=== PATIENT | male | born 1995 | race Caucasian/White ===

== ENCOUNTER 2021-12-29 17:25 | Outpatient (CLI) | payer SELFPAY | END 2021-12-29 23:59 | disposition home or self-care (01) | PROVIDERS: PCP Family Medicine; Visit Provider Otolaryngology | DX: Z03.818 Encounter for observation for suspected exposure to other biological agents ruled out (principal); Z11.59 Encounter for screening for other viral diseases | CPT/HCPCS: 87635; U0003; U0005 ==

== ENCOUNTER 2023-05-07 09:28 | Emergency (ER) | payer SELFPAY ==
[2023-05-07 09:29] VITALS: BP 123/87; PULSE 66; RESP 14; TEMP 36.4; O2SAT 99; BMI 24.4
--- NOTE | 2023-05-07 09:34 | NURSING ---
NO OLD EKGS
[2023-05-07 09:36] VITALS: BP 139/91; PULSE 68; RESP 14; O2SAT 98
--- NOTE | 2023-05-07 09:37 | EDS_ITS ---
HPI History of Present Illness Chief Complaint: Chest Pain [facility] Medical History no medical history Home Medications NK 05/07/23 [History Last Taken Unknown] Allergy/AdvReac Type Severity Reaction Status Date / Time No Known Allergies Allergy Verified 05/07/23 09:29 Surgical History no surgical history Social History Smoking Status: Former smoker EXAM Physical Exam Const Vital Signs: 05/07/23 09:29 05/07/23 09:36 05/07/23 09:37 Temperature 97.6 F L Temperature Source Temporal Pulse Rate 66 68 Respiratory Rate 14 14 Respiratory Effort Normal Blood Pressure 123/87 H 139/91 H Blood Pressure Mean 99 107 Pulse Ox 99 98 Oxygen Delivery Method Room Air Room Air 05/07/23 09:49 05/07/23 11:15 Temperature Temperature Source Pulse Rate 55 L Respiratory Rate 17 Respiratory Effort Blood Pressure 130/88 H Blood Pressure Mean 102 Pulse Ox 97 Oxygen Delivery Method Room Air Heart Score History: Moderately Suspicious ECG: Normal Age: </= 45 years Risk Factors: No Risk Factors Troponin: </= Normal Limit Score: 1 MDM MDM MDM Narrative Medical decision making narrative: HISTORY OF PRESENT ILLNESS: 27-year-old male presents with chest pain. He states acute onset of chest pain approximately 4 hours prior to arrival. States he felt nauseous and started feeling sweaty and almost passed out. Denies history of similar symptoms. Denies any recent alcohol use. Denies any nausea or vomiting. Denies any abdominal pain. Denies any fever cough. Patient denies sudden onset of pain, no tearing sensation, no migratory symptoms, no new numbness, weakness or loss of sensation. Patient denies family history or personal history of Marfan syndrome or Lexa-Danlos. The patient denies recent surgery in the last 4 weeks or immobilization in the last 3 days, denies previous diagnosis of DVT or PE, hemoptysis, unilateral leg swelling or malignancy with treatment the last 6 months. No estrogen use noted. REVIEW OF SYSTEMS: All other systems reviewed and are negative except as noted in the history of present illness. At least 10 review of systems reviewed and are negative except as noted in history of present illness. PHYSICAL EXAM: Nursing triage notes reviewed, Vital signs reviewed Constitutional: please see mdm HENT: MMM Eyes: Pupils equal round and reactive to light, Extraocular muscles intact Neck: No stridor, no JVD, full neck ROM Lungs: Clear to auscultation, No wheezing or rales. No increased work of breathing, no conversational dyspnea, no accessory muscle use, no nasal flaring. No respiratory distress noted Heart: Regular rate and rhythm, No murmurs, No rubs and No gallops, 2+ distal pulses (radial, femoral, posterior tibial) in all extremities Abdomen: Soft, there is no tenderness, rigidity, rebound or guarding, no obvious peritoneal signs, no palpable pulsatile abdominal masses, no auscultated abdominal bruit : No CVAT Extremities: No edema Neuro: No focal neurological deficits, cranial nerves II through XII intact, 5/5 strength in all extremities. Intact sensation to light touch in all extremities, 2+ reflexes bilateral patella tendons. Normal gait. No ataxia. Skin: No rash or lesions noted MEDICAL DECISION MAKING: Chief Complaint: Chest pain External records reviewed: No recent ED visits or hospitalizations, no recent cardiac observation, stress test or echocardiograms noted in the chart Factors affecting care: No prior medical history Social determinants of health: Patient denies cocaine or methamphetamine abuse History obtained from others: The patient's mother Consults: none ALL IMAGES (IF OBTAINED) HAVE BEEN PERSONALLY REVIEWED AND INTERPRETED BY MYSELF. EKG with normal sinus rhythm, normal axis, normal intervals, no obvious STEMI, no signs of HOCM, WPW or ARVD or Brugada syndrome CBC without leukocytosis, severe anemia, no thrombocytopenia. BMP without evidence of significant electrolyte abnormalities, no anion gap, no acute kidney injury. Troponin is negative, no evidence of myocardial ischemia BNP within normal limits making volume overload, increased ventricular stretch, increased transmural pressure less likely MDM Narrative: Patient was hemodynamically stable, afebrile, nontoxic-appearing. Exam without focal cardiopulmonary abnormalities, no murmurs, no gallops no rubs. No stigmata of VTE or dissection. I considered the following differential diagnosis: ACS, arrhythmia, anemia, electrolyte abnormality, pneumonia, pneumothorax, GI etiology, PE I obtained a broad lab and imaging work-up to further elucidate the etiology of the patient's complaints pacifically without signs of heart failure, myocardial ischemia, anemia or electrolyte abnormalities, pneumonia or pneumothorax. I considered obtaining a CT of the chest to rule out PE or dissection however thought these etiologies less likely given reassuring clinical history and reassuring exam. PE less likely given low risk Wells score. Aortic dissection is thought to be less likely given no sudden ripping or tearing pain, migratory pain, palpable pulse inequalities, no focal neurologic deficits concurrent with chest pain. Chance of dissection less than 10/1999. Pericarditis less likely given no pathognomonic EKG changes (no diffuse ST elevations, CO depressions). GI etiology (i.e. Boerhaave syndrome) less likely given no chest or neck crepitus, no vomiting or forced retching. I completed a HEART Score to screen for Major Adverse Cardiac Event (MACE) in this patient. The evidence indicates that the patient is very low risk for MACE and this is consistent with my clinical intuition. The risk of further workup or hospitalization for MACE is likely higher than the risk of the patient having a MACE. It is, therefore, in the patient?s best interest not to do additional emergent testing or to be hospitalized for MACE at this time. Shared Decision-Making No hospitalization indicated I have discussed with the patient my clinical impression and the result of the HEART Score to screen for MACE, as well as the risks of further testing and hospitalization. The HEART Score shows that the risk for MACE is less than 1%. Although the risk of MACE has not been completely eliminated, the risks of further testing or hospitalization for MACE likely exceed any potential benefit, and the patient agrees with not pursuing further emergent evaluation or hospitalization for MACE at this time. The patient and/or family, caregivers express understanding. The patient and/or family, caregivers agrees with the plan. Total critical care time today provided was at least 0 minutes. This excludes separately billable procedures. Critical care time (if documented) is secondary to the patient having high probability of clinically significant/life threatening deterioration in the patient's condition which required my urgent intervention. [place] Beach, DO Lab Data Labs: Laboratory Results - last 24 hr 05/07/23 09:40 WBC 5.6 RBC 5.49 Hgb 16.5 Hct 47.8 MCV 87.1 MCH 30.1 MCHC 34.5 RDW Std Deviation 37.6 RDW Coeff of Khai 11.9 Plt Count 188 MPV 11.5 Immature Gran % (Auto) 0.200 Neut % (Auto) 63.3 Lymph % (Auto) 27.4 [place] % (Auto) 8.3 Eos % (Auto) 0.4 Baso % (Auto) 0.4 Absolute Neuts (auto) 3.6 Absolute Lymphs (auto) 1.54 Nucleated RBC % 0 Sodium 139 Potassium 3.8 Chloride 104 Carbon Dioxide 29.0 Anion Gap 6 BUN 22 H Creatinine 1.01 Estim Creat Clear Calc 111.43 Est GFR (MDRD) Af Amer 112 Est GFR (MDRD) Non-Af 92 BUN/Creatinine Ratio 21.8 H Glucose 128 H Calcium 9.1 Troponin I High Sens < 3 L B-Natriuretic Peptide 4.7 Radiography Diagnostic Testing: Clinical Impression(s) from Imaging Studies Chest X-Ray 05/07/23 10:05 IMPRESSION: No acute abnormality is seen. Electronically Signed: Joel Austin MD at 10:24 EDT , Discharge Plan Triage Chief Complaint: Chest Pain ED Provider: [place] Beach Dx/Rx/DC Orders Clinical Impression: Chest pain Instructions: Chest Pain [facility] Prescriptions: No Action NK Primary Care Provider: Moy David Referrals: Moy David, [Primary Care Provider] - Activity Restrictions/Additional Instructions: Thank you for trusting us with your care today! Please take Tylenol (2 pills, 650 mg), ibuprofen (2 pills, 400 mg) every 6 hours as needed for pain and fever control. Please return to the emergency department if your symptoms change or worsen. Specifically develop chest pain, shortness of breath, if you lose consciousness, you develop focal numbness or weakness in your extremities Please follow with your primary care physician for further outpatient evaluation and management which may include ultrasound the heart called an echocardiogram. Disposition Disposition: Home, Self Care
--- NOTE | 2023-05-07 09:59 | NURSING ---
NO OLD EKGS
[2023-05-07] MEDS: 0.9% Normal Saline 1,000 ML 1000 ML IV (10:00)
--- NOTE | 2023-05-07 10:00 | EKG12_ITS ---
Test Reason : CP Blood Pressure : / mmHG Vent. Rate : 061 BPM Atrial Rate : 061 BPM P-R Int : 162 ms QRS Dur : 080 ms QT Int : 420 ms P-R-T Axes : 055 051 017 degrees QTc Int : 422 ms Normal sinus rhythm Normal ECG Confirmed by FAITH GREENE, YESSICA ([id number]), technical writer and editor YAEL CHUN ([id number]) on 05/17/2023 12:14:46 PM Referred By: Confirmed By:YESSICA CUEVAS MD
[2023-05-07 10:05] LABS: Absolute Lymphocyte Count 1.54 X10^3/uL (0.83-4.51); Absolute Neutrophil Count 3.6 X10^3/uL (2.0-7.7); Basophil# 0.02 X10^3/uL; Basophil% 0.4 % (0-1); Eosinophil# 0.02 X10^3/uL; Eosinophils% 0.4 % (0-5); Hematocrit 47.8 % (40-54); Hemoglobin 16.5 g/dL (13.0-16.5); Lymphocyte # 1.54 X10^3/ul (0.83-4.51); Lymphocyte % 27.4 % (19-41); Mean Corp Hgb Conc 34.5 g/dL (32-36); Mean Corpuscular Hgb 30.1 pg (27.0-32.0); Mean Corpuscular Volume 87.1 fL (80-94); Mean Platelet Vol. 11.5 fl (6.2-12.0); Monocyte# 0.47 X10^3/uL; Monocyte% 8.3 % (0-10); NRBC Flagged by Analyzer 0 % (0-5); Neutrophil # 3.57 X10^3/uL (2.7-7.7); Neutrophil % 63.3 % (47-70); Platelet Count 188 K/mm3 (150-450); RBC Distribution Width CV 11.9 % (11.6-14.6); RBC Distribution Width SD 37.6 fl (35.1-43.9); Red Blood Count 5.49 M/mm3 (4.6-6.2); White Blood Count 5.6 K/mm3 (4.4-11.0)
--- NOTE | 2023-05-07 10:05 | RAD_ITS ---
STUDY: X-RAY CHEST REASON FOR EXAM: Male, 27 years old. Chest pain TECHNIQUE: Single AP portable view of the chest. COMPARISON: None. FINDINGS: EKG electrodes are seen. The lungs are clear and expanded. Scattered calcified granulomas. There is no demonstrated pleural abnormality. Normal size heart. Normal mediastinum and tammi. Normal visualized pulmonary arteries. Normal visualized aortic arch and descending thoracic aorta. Normal visualized thoracic spine. Normal visualized ribs, clavicles, and shoulders. There is no demonstrated abnormality of the visualized soft tissue structures of the upper abdomen. RAD/Chest 1 View (Portable) IMPRESSION: No acute abnormality is seen. Electronically Signed: Joel Austin MD at 10:24 EDT ,
[2023-05-07 10:27] LABS: Anion Gap 6 (5-15); BUN 22 mg/dL (7-18); BUN/Creat Ratio 21.8 RATIO (10-20); Calcium,Total 9.1 mg/dL (8.5-10.1); Chloride 104 mmol/L (98-107); Creatinine, Serum 1.01 mg/dL (0.70-1.30); EST Glomerular Filtration Rate 92 mL/min (>60); Est Glom Filt Rate - Afr Amer 112 mL/min (>60); Estimated Creatinine Clearance 111.43 ml/min; Glucose 128 mg/dL (74-106); Potassium 3.8 mmol/L (3.5-5.1); Sodium Level 139 mmol/L (136-145); Troponin-I HS (w/2H Reflex) < 3 pg/mL (3.0-78.0)
[2023-05-07 10:30] LABS: BNP,B-Type NATRIURETIC PEPTIDE 4.7 pg/mL (0-100)
[2023-05-07] MEDS: Aspirin 81 MG TAB.CHEW 324 MG PO (11:10)
[2023-05-07 11:15] VITALS: BP 130/88; PULSE 55; RESP 17; O2SAT 97
[2023-05-07 11:59] LABS: Reflex Troponin-HS? (from REC) Y
== END 2023-05-07 12:38 | disposition home or self-care (01) ==
PROVIDERS: Emergency Provider Emergency Medicine; PCP Family Medicine; Visit Provider Emergency Medicine
DX: R07.9 Chest pain, unspecified (principal); Z87.891 Personal history of nicotine dependence
CPT/HCPCS: 71045; 80048; 83880; 84484; 85025; 93005; 96360; 99285; J7030; A4216